=== PATIENT | male | born 1990 | race Caucasian/White ===

== ENCOUNTER 2016-06-18 21:54 | Emergency (ER) | payer OTHER ==
[2016-06-18] MEDS ORDERED: AZITHROMYCIN 250 MG TABLET PO STA (22:49)
[2016-06-18] MEDS ORDERED: DEXAMETHASONE 10 MG/ML VIAL PO STA (22:49)
[2016-06-18] MEDS ORDERED: AZITHROMYCIN 250 MG TABLET PO ONE (22:56)
[2016-06-18] MEDS ORDERED: DEXAMETHASONE 10 MG/ML VIAL ONE (22:56)
== END 2016-06-18 23:21 | disposition home or self-care (01) ==
DX: H66.92 Otitis media, unspecified, left ear (principal); R30.0 Dysuria
CPT/HCPCS: 81003; 99283; 99284; A9270